=== PATIENT | female | born 1965 | race Caucasian/White ===

== ENCOUNTER 2018-12-01 22:35 | Emergency (ER) | payer SELFPAY ==
[~2018-12-01] VITALS: Ht 162.6 cm; Wt 66.7 kg
[2018-12-01 22:53] VITALS: Ht 162.6 cm; Wt 66.7 kg
[2018-12-02 01:40] VITALS: BP 136/70
== END 2018-12-02 01:40 | disposition home or self-care (01) ==
LOC: ED 22:35
DX: S66.392A Other injury of extensor muscle, fascia and tendon of right middle finger at wrist and hand level, initial encounter (principal); X58.XXXA Exposure to other specified factors, initial encounter; Y93.89 Activity, other specified; Y92.89 Other specified places as the place of occurrence of the external cause; Y99.8 Other external cause status
CPT/HCPCS: 90715

== ENCOUNTER 2018-12-07 05:02 | Emergency (ER) | payer SELFPAY ==
[~2018-12-07] VITALS: Ht 165.1 cm; Wt 76.2 kg
[2018-12-07 05:09] VITALS: Ht 165.1 cm; Wt 76.2 kg
[2018-12-07 06:06] VITALS: BP 142/87
== END 2018-12-07 06:06 | disposition home or self-care (01) ==
LOC: ED 05:02
DX: S61.212D Laceration without foreign body of right middle finger without damage to nail, subsequent encounter (principal); X58.XXXD Exposure to other specified factors, subsequent encounter